=== PATIENT | female | born 1955 | race Caucasian/White ===

== ENCOUNTER → 2019-01-06 | Outpatient (CLI) | payer MEDICARE ==
--- NOTE | 2019-01-06 11:14 | US ---
EXAMINATION TYPE: US extremity nonvasc mass RT DATE OF EXAM: 01/06/2019 COMPARISON: NONE CLINICAL HISTORY: R22.31 Localized swelling, mass and lump, right up. palpable lump on anterior forea rm toward wrist but not at typical site for ganglion cyst, has increased in size slightly, not painfu l and no skin changes. TECHNIQUE/FINDINGS: Targeted grayscale and color imaging was performed of the patient's palpable abno rmality of the right anterior forearm above the wrist. There is a well-circumscribed 4.8 x 2.3 x 2.6c m, isoechoic, mobile lesion that is slightly compressible by us probe. This has intervening linear ar eas of hyperechogenicity. This is superficially located and avascular with peripheral vascular flow n oted. IMPRESSION: Palpable abnormality of the right forearm has sonographic features of a lipoma, however if this is new or there is clinical interval growth MRI with contrast would be recommended to evaluat e for other lipomatous lesion such as liposarcoma.
--- NOTE | 2019-01-06 14:36 | XR ---
EXAMINATION TYPE: XR forearm RT DATE OF EXAM: 01/06/2019 CLINICAL HISTORY: Palpable abnormality in the right forearm. TECHNIQUE: Two views of the right forearm are obtained. COMPARISON: None. FINDINGS: There is no acute fracture or dislocation seen in the right radius or ulna. The right elb ow and wrist joints appear within normal limits. No osseous erosion or periosteal reaction of the ra dius deep to a large soft tissue contour abnormality measuring approximately 5.1 cm at the radial asp ect of the radius just proximal to the wrist joint. This is radiolucent. No calcifications. The overl sonia soft tissue appears within normal limits. IMPRESSION: 1. Lucent subcutaneous lesion of the lateral distal right forearm soft tissues without adjacent perio steal reaction or osseous erosion. MRI with contrast could be performed for further evaluation. 2. No acute fracture or dislocation seen in the right radius or ulna.
== END ==
LOC: RADUSMAIN 09:11
PROVIDERS: ATTEND Surgery
DX: L98.8 Other specified disorders of the skin and subcutaneous tissue (principal); R22.31 Localized swelling, mass and lump, right upper limb

== ENCOUNTER 2020-12-08 07:52 | Emergency (ER) | payer MEDICARE ==
[2020-12-08 08:07] VITALS: TEMP 97.8
[2020-12-08] MEDS ORDERED: methylPREDNISolone SOD SUCCI 125 MG/2 ML VIAL IV STA (08:26)
[2020-12-08] MEDS ORDERED: IPRATROPIUM-ALBUTEROL 3 ML NEB INHALATION STA (08:26)
--- NOTE | 2020-12-08 08:31 | ED ---
General Adult HPI - General Chief complaint: Shortness of Breath Stated complaint: ASHLEY Time Seen by Provider: 12/08/20 08:07 Source: patient, RN notes reviewed Mode of arrival: ambulatory Limitations: no limitations - History of Present Illness Initial comments: Patient is a pleasant 65-year-old female presenting to the emergency Department with complaints of difficulty in breathing. Symptoms have progressed with the past few days. Patient does have seasonal cough with clear sputum. No fever. Patient has history of similar symptoms similar to previous COPD. Patient is trying to decrease smoking is down to 4 cigarettes per day. No leg pain or leg swelling. No chest pain. - Related Data Home Medications Medication Instructions Recorded Confirmed ALPRAZolam [Xanax] 0.25 mg PO BID PRN 12/08/20 12/08/20 Albuterol Inhaler [Ventolin Hfa 2 puff INHALATION RT-QID PRN 12/08/20 12/08/20 Inhaler] Albuterol Nebulized [Ventolin 2.5 mg INHALATION RT-Q6H 12/08/20 12/08/20 Nebulized] Aspirin 81 mg PO DAILY 12/08/20 12/08/20 Hydrochlorothiazide 25 mg PO DAILY 12/08/20 12/08/20 [hydroCHLOROthiazide] Levothyroxine Sodium [Synthroid] 137 mcg PO [id number] 12/08/20 12/08/20 Loratadine [Children's Loratadine 5 mg PO DAILY 12/08/20 12/08/20 Soln] Losartan Potassium [Cozaar] 50 mg PO BID 12/08/20 12/08/20 Metoprolol Succinate [Toprol XL] 25 mg PO HS 12/08/20 12/08/20 Pedi Multivit No.19/Folic Acid 200 mcg PO DAILY 12/08/20 12/08/20 [Children's Multi-Vit Gummies] Previous Rx's Medication Instructions Recorded predniSONE [Deltasone] 20 mg PO BID #10 tab 12/08/20 Allergies Allergy/AdvReac Type Severity Reaction Status Date / Time codeine Allergy Rash/Hives Verified 12/08/20 10:17 Sulfa (Sulfonamide Allergy Rash/Hives Verified 12/08/20 10:17 Antibiotics) Review of Systems ROS Statement: Those systems with pertinent positive or pertinent negative responses have been documented in the HPI. ROS Other: All systems not noted in ROS Statement are negative. Constitutional: Denies: fever Eyes: Denies: eye pain ENT: Denies: ear pain Respiratory: Reports: as per HPI, cough, dyspnea Cardiovascular: Denies: chest pain Endocrine: Denies: fatigue Gastrointestinal: Denies: abdominal pain Genitourinary: Denies: urgency Musculoskeletal: Denies: back pain Skin: Denies: rash Neurological: Denies: weakness Past Medical History Past Medical History: COPD, Hypertension, Thyroid Disorder History of Any Multi-Drug Resistant Organisms: None Reported Past Surgical History: Appendectomy, Tonsillectomy, Tubal Ligation Additional Past Surgical History / Comment(s): thyroidectomy Past Psychological History: Anxiety Smoking Status: Current every day smoker Past Alcohol Use History: Occasional Past Drug Use History: None Reported General Exam Limitations: no limitations General appearance: alert, in no apparent distress Head exam: Present: normocephalic Eye exam: Present: normal appearance Neck exam: Present: normal inspection Respiratory exam: Present: wheezes, decreased breath sounds Cardiovascular Exam: Present: regular rate, normal rhythm GI/Abdominal exam: Present: soft. Absent: tenderness Extremities exam: Present: normal inspection. Absent: pedal edema, calf tenderness Neurological exam: Present: alert Psychiatric exam: Present: normal affect, normal mood Skin exam: Present: normal color Course Vital Signs 12/08/20 12/08/20 12/08/20 08:02 09:06 09:54 Temperature 97.8 F Pulse Rate 73 Respiratory 18 20 20 Rate Blood Pressure 194/95 O2 Sat by Pulse 94 L Oximetry 12/08/20 12/08/20 12/08/20 09:59 10:00 10:31 Temperature Pulse Rate 64 62 74 Respiratory 20 18 Rate Blood Pressure 172/88 O2 Sat by Pulse 95 Oximetry 12/08/20 12/08/20 10:44 11:00 Temperature Pulse Rate 62 62 Respiratory 18 Rate Blood Pressure 165/98 O2 Sat by Pulse 95 Oximetry EKG Findings - EKG Comments: EKG Findings:: Normal sinus rhythm with a rate of 65. WI 126. QRS 88. QT 416. QTC 432. Normal axis. Normal QRS. No acute ST change. Medical Decision Making - Medical Decision Making Patient reevaluated and feeling better. Patient requesting discharge home. Pulse ox 95% on room air. Mild wheezing left lung. - Lab Data Result diagrams: 12/08/20 08:49 12/08/20 08:49 Lab Results 12/08/20 12/08/20 12/08/20 Range/Units 08:49 08:49 08:49 WBC 8.4 (3.8-10.6) k/uL RBC 4.96 (3.80-5.40) m/uL Hgb 15.0 (11.4-16.0) gm/dL Hct 43.8 (34.0-46.0) % MCV 88.2 (80.0-100.0) fL MCH 30.1 (25.0-35.0) pg MCHC 34.2 (31.0-37.0) g/dL RDW 12.9 (11.5-15.5) % Plt Count 302 (150-450) k/uL MPV 6.8 Neutrophils % 60 % Lymphocytes % 27 % Monocytes % 3 % Eosinophils % 8 % Basophils % 1 % Neutrophils # 5.0 (1.3-7.7) k/uL Lymphocytes # 2.3 (1.0-4.8) k/uL Monocytes # 0.3 (0-1.0) k/uL Eosinophils # 0.7 (0-0.7) k/uL Basophils # 0.1 (0-0.2) k/uL PT 10.5 (9.0-12.0) sec INR 1.0 (<1.2) APTT 23.4 (22.0-30.0) sec Sodium 137 (137-145) mmol/L Potassium 3.7 (3.5-5.1) mmol/L Chloride 103 (98-107) mmol/L Carbon Dioxide 23 (22-30) mmol/L Anion Gap 11 mmol/L BUN 18 H (7-17) mg/dL Creatinine 0.76 (0.52-1.04) mg/dL Est GFR (CKD-EPI)AfAm >90 (>60 ml/min/1.73 sqM) Est GFR (CKD-EPI)NonAf 82 (>60 ml/min/1.73 sqM) Glucose 135 H (74-99) mg/dL Plasma Lactic Acid Luis (0.7-2.0) mmol/L Calcium 9.8 (8.4-10.2) mg/dL Total Bilirubin 0.4 (0.2-1.3) mg/dL AST 41 H (14-36) U/L ALT 29 (4-34) U/L Alkaline Phosphatase 83 (38-126) U/L Total Protein 7.8 (6.3-8.2) g/dL Albumin 4.5 (3.5-5.0) g/dL Coronavirus (PCR) (Not Detectd) 12/08/20 12/08/20 Range/Units 08:49 09:01 WBC (3.8-10.6) k/uL RBC (3.80-5.40) m/uL Hgb (11.4-16.0) gm/dL Hct (34.0-46.0) % MCV (80.0-100.0) fL MCH (25.0-35.0) pg MCHC (31.0-37.0) g/dL RDW (11.5-15.5) % Plt Count (150-450) k/uL MPV Neutrophils % % Lymphocytes % % Monocytes % % Eosinophils % % Basophils % % Neutrophils # (1.3-7.7) k/uL Lymphocytes # (1.0-4.8) k/uL Monocytes # (0-1.0) k/uL Eosinophils # (0-0.7) k/uL Basophils # (0-0.2) k/uL PT (9.0-12.0) sec INR (<1.2) APTT (22.0-30.0) sec Sodium (137-145) mmol/L Potassium (3.5-5.1) mmol/L Chloride (98-107) mmol/L Carbon Dioxide (22-30) mmol/L Anion Gap mmol/L BUN (7-17) mg/dL Creatinine (0.52-1.04) mg/dL Est GFR (CKD-EPI)AfAm (>60 ml/min/1.73 sqM) Est GFR (CKD-EPI)NonAf (>60 ml/min/1.73 sqM) Glucose (74-99) mg/dL Plasma Lactic Acid Luis 2.5 H* (0.7-2.0) mmol/L Calcium (8.4-10.2) mg/dL Total Bilirubin (0.2-1.3) mg/dL AST (14-36) U/L ALT (4-34) U/L Alkaline Phosphatase (38-126) U/L Total Protein (6.3-8.2) g/dL Albumin (3.5-5.0) g/dL Coronavirus (PCR) Not Detected (Not Detectd) - Radiology Data Radiology results: image reviewed (Chest x-ray shows no acute process) Disposition Clinical Impression: Acute exacerbation of chronic obstructive pulmonary disease Disposition: HOME SELF-CARE Condition: Stable Instructions (If sedation given, give patient instructions): COPD (Chronic Obstructive Pulmonary Disease) (ED) Additional Instructions: Please follow-up with primary care physician in the next day or 2 for recheck. Prescription for steroids has been sent to your pharmacy. Return for difficulty in breathing, fevers, discolored cough/sputum, worsening symptoms or other concerns. Prescriptions: predniSONE [Deltasone] 20 mg PO BID #10 tab Is patient prescribed a controlled substance at d/c from ED?: No Referrals: Denise Rodriguez MD [Primary Care Provider] - 1-2 days Time of Disposition: 11:43
[2020-12-08 09:06] LABS: Basophils # (A) 0.1 k/uL (0-0.2); Basophils % (A) 1 %; Eosinophils # (A) 0.7 k/uL (0-0.7); Eosinophils % (A) 8 %; HCT 43.8 % (34.0-46.0); Lymphocytes # (A) 2.3 k/uL (1.0-4.8); Lymphocytes % (A) 27 %; MCH 30.1 pg (25.0-35.0); MCHC 34.2 g/dL (31.0-37.0); MCV 88.2 fL (80.0-100.0); Mean Platelet Volume 6.8; Monocytes # (A) 0.3 k/uL (0-1.0); Monocytes % (A) 3 %; Neutrophils % (A) 60 %; Platelet Count 302 k/uL (150-450); RBC 4.96 m/uL (3.80-5.40); RDW 12.9 % (11.5-15.5); WBC 8.4 k/uL (3.8-10.6)
[2020-12-08 09:17] LABS: ALT 29 U/L (4-34); AST 41 U/L (14-36); African American GFR (CKD) >90 (>60 ml/min/1.73 sqM); Albumin 4.5 g/dL (3.5-5.0); Alkaline Phosphatase 83 U/L (38-126); Anion Gap 11 mmol/L; Blood Urea Nitrogen 18 mg/dL (7-17); Calcium 9.8 mg/dL (8.4-10.2); Carbon Dioxide 23 mmol/L (22-30); Chloride 103 mmol/L (98-107); Glucose 135 mg/dL (74-99); Non-African American GFR(CKD) 82 (>60 ml/min/1.73 sqM); Potassium 3.7 mmol/L (3.5-5.1); Sodium 137 mmol/L (137-145); Total Bilirubin 0.4 mg/dL (0.2-1.3); Total Protein 7.8 g/dL (6.3-8.2)
[2020-12-08 09:29] LABS: Partial Thromboplastin Time 23.4 sec (22.0-30.0); Prothrombin Time 10.5 sec (9.0-12.0)
--- NOTE | 2020-12-08 10:10 | XR ---
EXAMINATION TYPE: XR chest 2V DATE OF EXAM: 12/08/2020 COMPARISON: 08/18/2013 HISTORY: 65-year-old female cough and difficulty breathing TECHNIQUE: PA and lateral views FINDINGS: Heart normal size. Aorta and pulmonary vasculature within normal limits. Some strandy atelectasis in the lower lungs. Hyperinflation. No dank consolidation or pleural effusion. IMPRESSION: COPD. Some strandy density in the lower lungs suggests areas of atelectasis. No definite focal infilt rate.
[2020-12-08 10:45] VITALS: PULSE 62
[2020-12-08 11:34] VITALS: BP 165/98; RESP 18
== END 2020-12-08 12:00 | disposition home or self-care (01) ==
LOC: EC 07:52
DX: J44.1 Chronic obstructive pulmonary disease with (acute) exacerbation (principal); I10 Essential (primary) hypertension; E07.9 Disorder of thyroid, unspecified; F17.210 Nicotine dependence, cigarettes, uncomplicated; Z20.822 Contact with and (suspected) exposure to COVID-19; Z88.2 Allergy status to sulfonamides; Z88.5 Allergy status to narcotic agent; Z79.82 Long term (current) use of aspirin; Z79.51 Long term (current) use of inhaled steroids; Z79.890 Hormone replacement therapy; Z79.899 Other long term (current) drug therapy
CPT/HCPCS: 36415; 94640; 93005; 80053; 83605; 85025; 85610; 85730; 87635; 71046; 99285; 96374; J2930